=== PATIENT | female | born 1965 | race Caucasian/White ===

== ENCOUNTER 2019-04-03 17:08 | Emergency (ER) | payer OTHER ==
[~2019-04-03] VITALS: Ht 175.3 cm; Wt 63.6 kg
[2019-04-03 17:09] VITALS: BP 112/58; Ht 175.3 cm; Wt 63.6 kg
[2019-04-03] MEDS ORDERED: IBUPROFEN400 MG PO (17:11)
[2019-04-03] MEDS ORDERED: TORADOL10 MG PO (17:48)
== END 2019-04-03 18:10 | disposition home or self-care (01) ==
LOC: D.ER 17:08
DX: S93.401A Sprain of unspecified ligament of right ankle, initial encounter (principal); X50.1XXA Overexertion from prolonged static or awkward postures, initial encounter; Y93.02 Activity, running; Y92.89 Other specified places as the place of occurrence of the external cause